=== PATIENT | male | born 1980 | race African-American/Black ===

== ENCOUNTER 2019-08-10 14:33 | Emergency (ER) | payer SELFPAY ==
[~2019-08-10] VITALS: Ht 172.7 cm; Wt 105.0 kg
[2019-08-10 17:04] VITALS: BP 123/70
== END 2019-08-10 23:01 | disposition left against medical advice (07) ==
LOC: ER 14:33
DX: Z53.21 Procedure and treatment not carried out due to patient leaving prior to being seen by health care provider (principal)

== ENCOUNTER 2019-10-13 20:57 | Emergency (ER) | payer MEDICAID ==
[~2019-10-13] VITALS: Ht 182.9 cm; Wt 962.0 kg
[2019-10-13] MEDS ORDERED: ONDANSETRON HCL 4MG/2ML INJ IV STA (21:11)
[2019-10-13] MEDS ORDERED: NALOXONE HCL 0.4 MG/ML 1ML VIAL IV ONE (21:15)
[2019-10-13 21:32] LABS: BASOPHILS % 1.2 % (0.0-2.0); EOSINOPHILS % 1.2 % (0.0-5.0); HEMATOCRIT. 44.2 % (42.0-52.0); HEMOGLOBIN. 15.3 g/dL (14.0-18.0); LYMPHOCYTES % 23.9 % (20.0-50.0); MEAN CORPUSCULAR HEMOGLOBIN 33.5 pg (28.0-32.0); MEAN CORPUSCULAR VOLUME 96.6 fL (80.0-94.0); MEAN PLATELET VOLUME 8.5 fl (7.4-10.4); MONOCYTES % 8.7 % (2.0-8.0); PLATELET 231 x1000/uL (130-400); RED BLOOD CELL COUNT 4.57 mill/uL (4.7-6.1); RED CELL DISTRIBUTION WIDTH 13.8 % (11.6-14.6)
[2019-10-13 21:35] LABS: CHLORIDE 113 mEq/L (98-107)
[2019-10-13 21:39] LABS: ETHANOL BLOOD 102 mg/dL
[2019-10-14] MEDS ORDERED: SODIUM CHLORIDE 0.9% 1,000 ML IV ONE (00:45)
[2019-10-14 05:49] VITALS: BP 169/98
== END 2019-10-14 06:00 | disposition home or self-care (01) ==
LOC: ER 20:57
DX: T50.905A Adverse effect of unspecified drugs, medicaments and biological substances, initial encounter (principal); Y92.89 Other specified places as the place of occurrence of the external cause
CPT/HCPCS: 36415; 70450; 80053; 80307; 80320; 80329; 84484; 85025; 93005; 96361; 96374; 96375; 99284; J2310; J2405; J7030; Z7610; G0480

== ENCOUNTER 2023-11-01 05:48 | Emergency (ER) | payer MEDICAID ==
[~2023-11-01] VITALS: Ht 175.3 cm; Wt 96.0 kg
[~2023-11-01 05:48] MED LIST: TOPUD PO
[2023-11-01] MEDS ORDERED: LORAZEPAM 4MG/ML VIAL IV SCH (06:40)
[2023-11-01] MEDS ORDERED: HALOPERIDOL LACTATE 5MG/ML VIAL IM ONE (06:45)
[2023-11-01] MEDS ORDERED: DIPHENHYDRAMINE 50MG/ML VIAL IV ONE (06:45)
[2023-11-01] MEDS ORDERED: LORAZEPAM 2MG/ML CPJ IV ONE (06:45)
[2023-11-01 08:34] VITALS: BP 240/150; PULSE 115; RESP 18; TEMP 98.1; O2SAT 97
[2023-11-01 08:57] LABS: BASOPHILS % 0.6 % (0.0-2.0); EOSINOPHILS % 0.2 % (0.0-5.0); HEMATOCRIT. 44.4 % (42.0-52.0); HEMOGLOBIN. 15.1 g/dL (14.0-18.0); LYMPHOCYTES % 11.8 % (20.0-50.0); MEAN PLATELET VOLUME 8.8 fl (7.4-10.4); MONOCYTES % 6.4 % (2.0-8.0); PLATELET 224 x1000/uL (130-400); RED BLOOD CELL COUNT 4.58 mill/uL (4.7-6.1); RED CELL DISTRIBUTION WIDTH 14.3 % (11.6-14.6); WHITE BLOOD COUNT 11.3 x1000/uL (4.5-11.0)
[2023-11-01 09:09] LABS: ALANINE AMINOTRANSFERASE 43 IU/L (10-49); ALBUMIN 4.1 g/dL (3.2-4.8); ASPARTATE AMINOTRANSFERASE 33 IU/L (<34); BILIRUBIN TOTAL 1.3 mg/dL (0.1-1.0); CARBON DIOXIDE 24 mEq/L (21-32); CHLORIDE 109 mEq/L (98-107); CREATININE 1.2 mg/dL (0.6-1.3); GLUCOSE 96 mg/dL (70-105); POTASSIUM 3.4 mEq/L (3.5-5.1); PROTEIN TOTAL 7.8 g/dL (6.0-8.3); SODIUM 140 mEq/L (136-145); UREA NITROGEN BLOOD 8 mg/dL (9-23)
[2023-11-01 09:10] LABS: ETHANOL BLOOD < 10 mg/dL (<10)
== END 2023-11-02 11:59 | disposition home or self-care (01) ==
LOC: ER 05:48
DX: R41.82 Altered mental status, unspecified (principal); F12.10 Cannabis abuse, uncomplicated
CPT/HCPCS: 80053; 80320; 82962; 85025; 36415; 96372; 96374; 96375; 99291; J1200; J1630; J2060; Z7610 ×2; G0480